=== PATIENT | male | born 1975 | race Caucasian/White ===

== ENCOUNTER → 2022-12-11 08:38 | Outpatient (CLI) | payer OTHER, SELFPAY ==
--- NOTE | ~2022-12-11 | US_ITS ---
Limited Abdominal Sonogram: Real-time sonographic imaging of the right upper quadrant was performed. Clinical History: Abnormal findings of blood chemistry Findings: The liver appears normal with no evidence of mass lesion or bile duct dilatation. Main por lelo vein demonstrates normal direction of flow. The gallbladder is well distended, and appears normal with no evidence of gallstone or wall thickening. The common bile duct measures 5 mm. The visualize d pancreas, aorta, and IVC are unremarkable. Impression: No significant abnormality seen. Reviewed, dictated and finalized at location M. Impression: No significant abnormality seen.
== END ==
PROVIDERS: PCP Family Medicine Adolescent Medicine; Visit Provider Nurse Practitioner Family
DX: R79.89 Other specified abnormal findings of blood chemistry (principal)
CPT/HCPCS: 76705

== ENCOUNTER 2023-11-21 08:30 | Emergency (ER) | payer BC, SELFPAY ==
--- NOTE | ~2023-11-21 | XR_ITS ---
EXAMINATION: XR thoracic spine 3V DATE: 11/21/2023 09:27 INDICATION: Right upper back pain. TECHNIQUE: 3 views of thoracic spine on 4 radiographs were obtained. COMPARISON: Chest 2 views 06/21/2009 FINDINGS: There is 13 degrees levoscoliosis of thoracic spine. There is mild chronic anterior wedging of T6, T7, and L1 vertebral bodies. There is mildly decreased disc height at multiple levels and low er thoracic spine. There are endplate osteophytes at most levels. IMPRESSION: 1. Mild thoracic spondylosis. 2. Thoracic levoscoliosis. Reviewed, dictated and finalized at location A.
[2023-11-21 08:52] VITALS: BP 135/81; PULSE 70; RESP 16; TEMP 36.6; O2SAT 98
--- NOTE | 2023-11-21 08:53 | ED.BACK ---
HPI - Back Pain/Injury General Chief Complaint: Back Pain/Injury Stated Complaint: mid back pain Time Seen by Provider: 11/21/23 08:53 Source: patient Mode of arrival: ambulatory Limitations: no limitations History of Present Illness HPI Narrative: 48 yo M presents with R upper back pain for about 1 wk. Pain is constant stabbing pain, worse with movement. Denies injury. Pt lifts weights. No urinary symptoms. Eating and drinking normally. No N/V. Having normal BMs. pt thought pain was muscular related but states in the past has had bruising and swelling with his muscle injuries such as a bicep tear . Ambulatory with steady gait. No radiation of pain. All systems reviwed and negative except as noted above. Related Data Allergies Allergy/AdvReac Type Severity Reaction Status Date / Time No Known Drug Allergies Allergy Mild none Verified 11/21/23 08:37 Review of Systems Review of Systems: CONSTITUTIONAL: Denies fever, chills, or sweats. EYES: Denies visual changes, redness, or discharge. ENT: Denies rhinorrhea, congestion, sore throat, or otalgia. CARDIOVASCULAR: Denies chest pain, palpitations, or edema. RESPIRATORY: Denies cough or dyspnea. GASTROINTESTINAL: Denies abdominal pain, nausea, vomiting, or diarrhea. GENITOURINARY: Denies dysuria or hematuria. SKIN: Denies rash or itching. MUSCULOSKELETAL: reports right upper back pain. Denies joint pain, or myalgia. NEUROLOGIC: Denies headache, numbness, or weakness. PSYCHIATRIC: Denies anxiety or depression. All other systems reviewed are negative, except as documented in HPI. PMFSH Social History Social History Smoking status: Never smoker Alcohol intake: current Substance use type: does not use Comments At time of signature, agree with nursing past medical, surgical, social and family history. There is no relevant family history pertinent to the presenting complaint. Exam Narrative: GENERAL: This is a well-nourished, well-developed patient, in no apparent distress. HEAD: normocephalic, atraumatic. EYES: PERRL. Sclera clear/white. Vision is grossly intact. EARS: External ears normal NOSE: External nose normal NECK: Neck supple, non-tender without lymphadenopathy, masses or thyromegaly. CARDIOVASCULAR: Regular rate and rhythm without murmurs, gallops, or rubs. RESPIRATORY: Clear to auscultation. Breath sounds equal bilaterally. No wheezes, rales, or rhonchi. SKIN: warm, Dry, intact with no suspicious lesions or rash, good texture and turgor. NEURO: awake, alert, and oriented to person, place and time. There were no obvious focal neurologic abnormalities. EXTREMITIES: No joint tenderness, effusion, or edema noted. BACK: muscular tenderness, trapezius and rhomboid. no midline tenderness. ROM normal. no soft tissues abnormalties noted. Course Course Level of Care: Express Care Visit Vital Signs Vital signs: Vital Signs Temperature 36.6 C 11/21/23 08:52 Pulse Rate 70 11/21/23 08:52 Respiratory Rate 16 11/21/23 08:52 Blood Pressure 135/81 11/21/23 08:52 Pulse Oximetry 98 11/21/23 08:52 Oxygen Delivery Room Air 11/21/23 08:52 Temperature 36.6 C 11/21/23 08:52 Pulse Rate 70 11/21/23 08:52 Respiratory Rate 16 11/21/23 08:52 Blood Pressure 135/81 11/21/23 08:52 Pulse Oximetry 98 11/21/23 08:52 Oxygen Delivery Room Air 11/21/23 08:52 reviewed MDM - Back Pain/Injury MDM Narrative Medical decision making narrative: Patient is aware of diagnosis, understands and agrees to treatment plan. Anticipatory guidance given. Patient agrees to follow-up as directed and is aware of reasons to seek care at the emergency department. Portions of this record may have been created with voice recognition software discussed x-ray results with patient. Patient has mild levoscoliosis. Will prescribe muscle relaxant, steroid for inflammation. Recommend stret
== END 2023-11-21 09:51 | disposition home or self-care (01) ==
PROVIDERS: Emergency Provider Nurse Practitioner Family; PCP Family Medicine Adolescent Medicine
DX: S29.012A Strain of muscle and tendon of back wall of thorax, initial encounter (principal); X58.XXXA Exposure to other specified factors, initial encounter
CPT/HCPCS: 72072; 81003; 99213; G0463